=== PATIENT | female | born 1975 | race Caucasian/White ===

== ENCOUNTER 2019-02-13 20:52 | Emergency (ER) | payer BC, OTHER ==
[2019-02-13 21:06] VITALS: BP 145/69; PULSE 101; TEMP 98.6; BMI 41.3
--- NOTE | 2019-02-13 21:36 | PDOC ---
History of Present Illness - General Chief Complaint: Respiratory Stated Complaint: COUGH Time Seen by Provider: 02/13/19 21:08 History Source: Patient - History of Present Illness Timing/Duration: reports: other Past History - Past Medical History Allergies/Adverse Reactions: Allergies Allergy/AdvReac Type Severity Reaction Status Date / Time No Known Allergies Allergy Unverified 02/13/19 21:06 Home Medications: Ambulatory Orders Benzonatate [Tessalon Pearls -] 100 mg PO TID #21 capsule 02/13/19 COPD: No - Psycho Social/Smoking Cessation Hx Smoking History: Never smoked Information on smoking cessation initiated: No Hx Alcohol Use: No Drug/Substance Use Hx: No Review of Systems - Review of Systems Constitutional: No: Chills, Fever Respiratory: Yes: Cough. No: Shortness of Breath, Wheezing, Hemoptysis Cardiac (ROS): Yes: Chest Pain. No: Lightheadedness, Palpitations, Chest Tightness *Physical Exam - Vital Signs Last Vital Signs Temp Pulse Resp BP Pulse Ox 98.6 F 101 H 18 145/69 96 02/13/19 21:04 02/13/19 21:04 02/13/19 21:04 02/13/19 21:04 02/13/19 21:04 - Physical Exam Comments: 02/13/19 21:39 pt coughing in ED General Appearance: Yes: Appropriately Dressed HEENT: positive: Normal Voice Neck: positive: Supple Respiratory/Chest: positive: Lungs Clear, Normal Breath Sounds. negative: Respiratory Distress Cardiovascular: positive: Regular Rate, S1, S2 Integumentary: positive: Dry, Warm Neurologic: positive: Fully Oriented, Alert, Normal Mood/Affect ED Treatment Course - RADIOLOGY Radiology Studies Ordered: Category Date Time Status CHEST PA & LAT [RAD] Stat Radiology 02/13/19 21:23 Ordered Medical Decision Making - Medical Decision Making 02/13/19 21:24 43-year-old female denies any past medical history and non-smoker, here with mostly nonproductive cough x2 weeks now with some pleuritic chest pain. No shortness of breath, hemoptysis, fever or chills see exam Cough M/l viral CXR w/ no obvious focal infiltrate -Dc w/ supportive tx -PMD f/u as needed Discharge - Discharge Information Problems reviewed: Yes Clinical Impression/Diagnosis: Cough Condition: Good Disposition: HOME - Additional Discharge Information Prescriptions: Benzonatate [Tessalon Pearls -] 100 mg PO TID #21 capsule - Follow up/Referral - Patient Discharge Instructions Patient Printed Discharge Instructions: Cough Additional Instructions: You most likely have a viral illness. Take Tessalon Perles as directed and drink plenty of fluids to thin out mucus Your chest x-ray did not show any evidence of pneumonia here and if there is any change to your x-ray read, we will contact you - Post Discharge Activity
== END 2019-02-13 21:44 | disposition home or self-care (01) ==
LOC: JERFT 20:52
DX: R05 Cough (principal)
CPT/HCPCS: 71046-TC-FY; 99281-25

== ENCOUNTER 2019-02-25 19:59 | Emergency (ER) | payer BC, OTHER ==
[2019-02-25 20:22] VITALS: BP 146/59; PULSE 93; TEMP 98.5; BMI 39.9
[2019-02-25] MEDS ORDERED: CODEINE SO4 30 MG TABLET PO ONE (21:21)
--- NOTE | 2019-02-25 21:31 | PDOC ---
History of Present Illness - General Chief Complaint: Cold Symptoms Stated Complaint: COUGH Time Seen by Provider: 02/25/19 20:46 History Source: Patient Exam Limitations: No Limitations - History of Present Illness Initial Comments: 02/25/19 21:52 HISTORY OF PRESENT ILLNESS: This is a 43-year-old woman denies medical history presents emergency department for reevaluation of cough now with fevers for the past 3 to 4 days. Patient states she was seen in this emergency department approximately 10 days ago and had a negative x-ray at that time. Patient was treated for cough with Kristina Montilla as an outpatient. She reports the medication had minimal relief of her coughing is now concerned she has influenza As both of her children have been recently diagnosed with influenza A. She denies chest pain or shortness of breath. Patient does endorse a cough induced headache. No recent travel or sick contacts. PAST MEDICAL HISTORY: Denies past medical history SURGICAL HISTORY: Denies ALLERGIES: No known drug allergies REVIEW OF SYSTEMS General/Constitutional: +fever. Denies weakness, weight change. HEENT: Denies change in vision. Denies ear pain or discharge. +sore throat. Cardiovascular: Denies chest pain or shortness of breath. Respiratory: Moist productive cough. Denies wheezing, or hemoptysis. Gastrointestinal: Denies nausea, vomiting, diarrhea or constipation. Denies rectal bleeding. Genitourinary: Denies dysuria, frequency, or change in urination. Musculoskeletal: +myalgias. Denies neck or back pain. Skin and breasts: Denies rash or easy bruising. Neurologic: Denies headache, vertigo, loss of consciousness, or loss of sensation. Psychiatric: Denies depression or anxiety. Endocrine: Denies increased thirst. Denies abnormal weight change. Hematologic/Lymphatic: Denies anemia, easy bleeding, or history of blood clots. Allergic/Immunologic: Denies hives or skin allergy. Denies latex allergy. PHYSICAL EXAM General Appearance: Well-appearing, appropriately dressed. No apparent distress , no intoxication. HEENT: EOMI, PERRLA, normal voice, TMs retracted bilaterally. No conjunctival pallor. No photophobia, scleral icterus. Oropharynx erythematous without lesions or exudate. Cobblestoning noted in the posterior. No nasal discharge present. Neck: Supple. Trachea midline. No tenderness, rigidity, carotid bruit, stridor , or thyromegaly. Nontender anterior cervical lymphadenopathy present. Respiratory/Chest: Lungs CTAB. No shortness of breath, chest tenderness, respiratory distress, accessory muscle use. No crackles, rales, rhonchi, stridor , wheezing, dullness Cardiovascular: RRR. S1, S2. No JVD, murmur, bradycardia, tachycardia. Vascular Pulses: Dorsalis-Pedis (R): 2+, Dorsalis-Pedis (L): 2+ Gastrointestinal/Abdominal: Normal bowel sounds. Abdomen soft, non-distended. No tenderness or rebound tenderness. No organomegaly, pulsatile mass, guarding, hernia, hepatomegaly, splenomegaly. Musculoskeletal/Extremities: Normal inspection. FROM of all extremities, normal capillary refill. Pelvis Stable. No CVA tenderness. No tenderness to extremities, pedal edema, swelling, erythema or deformity. Integumentary: Appropriate color, dry, warm. No cyanosis, erythema, jaundice or rash Neurologic: equipment planner II-XII intact. Fully oriented, alert. Appropriate mood/affect. Motor strength 5/5. No appreciable EOM palsy, facial droop or sensory deficit. Past History - Past Medical History Allergies/Adverse Reactions: Allergies Allergy/AdvReac Type Severity Reaction Status Date / Time No Known Allergies Allergy Unverified 02/13/19 21:06 Home Medications: Ambulatory Orders Benzonatate [Tessalon Pearls -] 100 mg PO TID #21 capsule 02/13/19 Amox-Tr/K Cl [Augmentin - 875Mg Tablet] 1 tab PO BID #14 tablet 02/25/19 COPD: No - Psycho Social/Smoking Cessation Hx Smoking History: Never smoked Hx Alcohol Use: No Drug/Substance Use Hx: No *Physical Exam - Vital Signs Last Vital Signs Temp Pulse Resp BP Pulse Ox 98.5 F 93 H 19 146/59 L 97 02/25/19 20:18 02/25/19 20:18 02/25/19 20:18 02/25/19 20:18 02/25/19 20:18 Medical Decision Making - Medical Decision Making 02/25/19 21:51 A/P: 43-year-old woman with persistent cough for 6 week now with fever and chills for 1 week Patient was seen and evaluated in this emergency department 10 days ago had a negative x-ray at that time. As the remainder of the family has been diagnosed with influenza since that time this is likely a viral illness but she is outside the 72-hour window for treatment. Patient does have tenderness over the maxillary sinuses. Patient has been given instructions for symptom medic treatment of upper respiratory viral infection and was sent a prescription for Augmentin to treat sinusitis given purulent nasal drainage. I discussed the physical exam findings, ancillary test results and final diagnoses with the patient. I answered all of the patient's questions. The patient was satisfied with the care received and felt comfortable with the discharge plan and treatment plan. The patient will call their primary care physician within 24 hours to arrange follow-up and will return to the Emergency Department with any new, persistent or worsening symptoms. Discharge - Discharge Information Problems reviewed: Yes Clinical Impression/Diagnosis: Cough Sinusitis Qualifiers: Sinusitis location: unspecified location Chronicity: acute Recurrence: not specified as recurrent Qualified Code(s): J01.90 - Acute sinusitis, unspecified Condition: Stable Disposition: HOME - Admission No - Additional Discharge Information Prescriptions: Amox-Tr/K Cl [Augmentin - 875Mg Tablet] 1 tab PO BID #14 tablet - Follow up/Referral - Patient Discharge Instructions Additional Instructions: Rest, drink lots of fluids: Teas, water, soups, Pedialyte Saltwater gargles Steamy showers/seem to face break up mucus Avoid contact with others until fevers and cough resolved Lots of handwashing and good hygiene Continue [id number] medications for symptomatic relief Tylenol or Motrin for fever and pain Take Augmentin as directed. Make sure you finish all these medications. Followup with private physician in one to 2 days as needed Return to emergency department for worsened symptoms, fevers, dehydration - Post Discharge Activity
== END 2019-02-25 21:44 | disposition home or self-care (01) ==
LOC: JERFT 19:59
DX: J01.00 Acute maxillary sinusitis, unspecified (principal); R05 Cough
CPT/HCPCS: 99282-25